=== PATIENT | female | born 1970 | race Two or more races ===

== ENCOUNTER 2017-02-14 16:22 | Emergency (ER) | payer MEDICAID ==
[~2017-02-14] VITALS: Ht 160 cm; Wt 90.7 kg
[2017-02-14 18:38] VITALS: BP 147/97
[2017-02-14] MEDS ORDERED: KETOROLAC TROMETH 60MG/2ML VIAL IM ONE (19:30)
[2017-02-14] MEDS ORDERED: ONDANSETRON ODT 4 MG TAB PO ONE (19:30)
== END 2017-02-14 19:53 | disposition home or self-care (01) ==
LOC: ER 16:24
DX: S00.93XA Contusion of unspecified part of head, initial encounter (principal); R51 Headache; W01.0XXA Fall on same level from slipping, tripping and stumbling without subsequent striking against object, initial encounter; Y93.89 Activity, other specified; Y99.8 Other external cause status; Y92.091 Bathroom in other non-institutional residence as the place of occurrence of the external cause
CPT/HCPCS: 70450; 96372; 99284; J1885; Q0162

== ENCOUNTER 2017-04-23 19:25 | Emergency (ER) | payer SELFPAY ==
[~2017-04-23] VITALS: Ht 162.6 cm; Wt 90.7 kg
[2017-04-23 19:58] VITALS: BP 168/98
[2017-04-23] MEDS ORDERED: IBUPROFEN 600 MG TAB PO ONE (23:00)
== END 2017-04-23 22:52 | disposition home or self-care (01) ==
LOC: ER 19:25
DX: J40 Bronchitis, not specified as acute or chronic (principal)